=== PATIENT | male | born 1980 | race Caucasian/White ===

== ENCOUNTER 2017-05-18 16:02 | Emergency (ER) | payer OTHER ==
[~2017-05-18] VITALS: Ht 182.9 cm; Wt 108.9 kg
[2017-05-18] MEDS ORDERED: NORCO 5-325 TA1 EACH PO (16:27)
== END 2017-05-18 17:15 | disposition home or self-care (01) ==
LOC: ED 16:02
DX: S42.022A Displaced fracture of shaft of left clavicle, initial encounter for closed fracture (principal); S00.81XA Abrasion of other part of head, initial encounter; V59.9XXA Occupant (driver) (passenger) of pick-up truck or van injured in unspecified traffic accident, initial encounter; Y92.411 Interstate highway as the place of occurrence of the external cause
CPT/HCPCS: 73000; 96372; 99283; G0390; G0480; J1170